=== PATIENT | female | born 1960 | race Caucasian/White ===

== ENCOUNTER 2020-03-30 06:03 | Emergency (ER) | payer OTHER ==
[~2020-03-30] VITALS: Ht 165.1 cm; Wt 59.1 kg
[2020-03-30] MEDS ORDERED: ONDANSETRON 2MG/ML, 2ML IVPush ONE (06:30)
[2020-03-30] MEDS ORDERED: SODIUM CHLORIDE FLUSH 10ML SYR IVF ONE (06:30)
[2020-03-30] MEDS ORDERED: MORPHINE SULFATE 4 MG/ML, 1ML IVPush PRN (06:30)
--- NOTE | 2020-03-30 06:57 | NUR ---
RECEIVED BEDSIDE REPORT FROM ROSAMARIA RN, PLAN OF CARE DISCUSSED
[2020-03-30] MEDS ORDERED: ONDANSETRON 2MG/ML, 2ML ONE (07:02)
[2020-03-30] MEDS ORDERED: MORPHINE SULFATE 4 MG/ML, 1ML ONE (07:02)
[2020-03-30 07:15] LABS: BASOPHILS % (AUTO) 2 % (0-1); EOSINOPHILS % (AUTO) 4 % (1-7); LYMPHOCYTES % (AUTO) 32 % (22-44); MEAN CORPUSCULAR HEMOGLOBIN 32.3 pg (27.0-34.8); MEAN CORPUSCULAR HGB CONC 32.8 g/dL (32.4-35.8); MEAN PLATELET VOLUME 8.1 fL (7.4-10.4); MONOCYTES % (AUTO) 12 % (2-9); NEUTROPHILS % (AUTO) 50 % (42-75); PLATELET COUNT 251 x10^3/uL (130-400); RED BLOOD COUNT 4.51 x10^6/uL (3.82-5.3); RED CELL DISTRIBUTION WIDTH 13.4 % (9.6-15.2)
[2020-03-30 07:16] LABS: MD NO
--- NOTE | 2020-03-30 07:23 | NUR ---
IV STARTED, PT REFUSED PAIN MEDICATION AND ZOFRAN AT THIS TIME.
[2020-03-30 07:28] LABS: ALBUMIN 3.6 g/dL (3.4-5.0); CALCIUM 8.4 mg/dL (8.5-10.1)
[2020-03-30 07:31] LABS: CREATININE 0.71 mg/dL (0.55-1.02)
[2020-03-30 07:36] LABS: MICROSCOPIC NOT IND
[2020-03-30 07:39] LABS: ANION GAP 5 mmol/L (5-15); CHLORIDE 112 mmol/L (98-107)
--- NOTE | 2020-03-30 07:56 | NUR ---
PT TO CT SCAN
[2020-03-30] MEDS ORDERED: OMNIPAQUE 350 MG/ML, 100ML BOTTLE ONE (08:25)
--- NOTE | 2020-03-30 08:28 | NUR ---
PATIENT BACK FROM CT, NO FURTHER NEEDS AT THIS TIME
[2020-03-30] MEDS ORDERED: MAGNESIUM CITRATE 300ML ORAL SOL PO ONE (08:30)
[2020-03-30] MEDS ORDERED: MAGNESIUM CITRATE 300ML ORAL SOL ONE (08:55)
[2020-03-30 09:04] VITALS: BP 125/83
--- NOTE | 2020-03-30 09:04 | NUR ---
Patient/Caregiver given discharge instructions and they have confirmed that they understand the instructions. Patient ambulatory with steady gait.
== END 2020-03-30 09:07 | disposition home or self-care (01) ==
LOC: ED 06:29
DX: R10.31 Right lower quadrant pain (principal); K59.00 Constipation, unspecified; E03.9 Hypothyroidism, unspecified
CPT/HCPCS: 36415; 74177; 80048; 81003; 82040; 85025; 99285; Q9967